=== PATIENT | male | born 1985 | race Caucasian/White ===

== ENCOUNTER 2021-07-11 16:26 | Emergency (ER) | payer OTHER ==
[~2021-07-11 16:26] MED LIST: CLEOCIN HCL300 MG PO; DIMETAPP COLD237 M1 PO; IBUPROFEN600 MG PO; Voltaren Gel 1 % TOP
[2021-07-11] MEDS ORDERED: IBUPROFEN800 MG PO (19:32)
[2021-07-11] MEDS ORDERED: IBU800 MG PO (19:38)
== END 2021-07-11 20:05 | disposition home or self-care (01) ==
LOC: ER1 16:26
DX: M79.641 Pain in right hand (principal); R22.9 Localized swelling, mass and lump, unspecified
CPT/HCPCS: 29125; 73130; 99283

== ENCOUNTER 2021-08-29 17:10 | Emergency (ER) | payer OTHER ==
[~2021-08-29 17:10] MED LIST changes: +IBU800 MG PO; +IBUPROFEN800 MG PO
== END 2021-08-29 18:33 | disposition left against medical advice (07) ==
LOC: ER1 17:10
DX: Z53.21 Procedure and treatment not carried out due to patient leaving prior to being seen by health care provider (principal)